=== PATIENT | female | born 1945 | race Caucasian/White ===

== ENCOUNTER 2018-07-08 08:24 | Day surgery (SDC) | payer OTHER ==
[~2018-07-08 08:24] MED LIST: FIORICET PO; NORVASC5 MG PO; TEGRETOL200 MG PO; VASOTEC10 MG PO
[2018-07-08] MEDS ORDERED: DOXYCYCLINE HY100 M2 PO (11:31)
[2018-07-08] MEDS ORDERED: Tylenol #3 PO (11:31)
== END 2018-07-08 16:20 | disposition home or self-care (01) ==
LOC: CIR.AMB 08:24
DX: D25.0 Submucous leiomyoma of uterus (principal); N84.0 Polyp of corpus uteri